=== PATIENT | female | born 1965 | race Caucasian/White ===

== ENCOUNTER 2022-11-14 14:51 | Outpatient (CLI) | payer BC | END 2022-11-14 14:52 | disposition home or self-care (01) | LOC: CSHMRI 14:51 | PROVIDERS: ATTEND Orthopaedic Surgery | DX: M24.812 Other specific joint derangements of left shoulder, not elsewhere classified (principal); Z98.890 Other specified postprocedural states; M75.102 Unspecified rotator cuff tear or rupture of left shoulder, not specified as traumatic; M75.52 Bursitis of left shoulder ==